=== PATIENT | female | born 1975 | race Caucasian/White ===

== ENCOUNTER → 2017-09-04 | Outpatient (CLI) | payer OTHER, BC ==
[2017-09-04 16:22] LABS: HEPATITIS B AB NEG
== END | disposition home or self-care (01) ==
LOC: C.LAB1850 14:09
PROVIDERS: ATTEND Nurse Practitioner Adult Health
DX: T14.8XXA Other injury of unspecified body region, initial encounter (principal); W46.1XXA Contact with contaminated hypodermic needle, initial encounter

== ENCOUNTER → 2017-10-12 | Outpatient (CLI) | payer OTHER | END | disposition home or self-care (01) | LOC: C.LAB1850 10:38 → EDSTATUS 10-14 10:31 | PROVIDERS: ATTEND Nurse Practitioner Adult Health | DX: Z77.21 Contact with and (suspected) exposure to potentially hazardous body fluids (principal) ==

== ENCOUNTER → 2017-12-01 | Outpatient (CLI) | payer OTHER | END | disposition home or self-care (01) | LOC: C.LAB1850 08:48 → EDSTATUS 12-10 12:57 | PROVIDERS: ATTEND Nurse Practitioner Adult Health | DX: Z77.21 Contact with and (suspected) exposure to potentially hazardous body fluids (principal); W46.1XXA Contact with contaminated hypodermic needle, initial encounter ==

== ENCOUNTER → 2018-03-09 | Outpatient (CLI) | payer OTHER | END | disposition home or self-care (01) | LOC: C.LAB1850 10:58 | PROVIDERS: ATTEND Nurse Practitioner Adult Health | DX: Z13.0 Encounter for screening for diseases of the blood and blood-forming organs and certain disorders involving the immune mechanism (principal) ==

== ENCOUNTER 2024-06-07 05:57 | Observation (INO) ==
--- NOTE | 2024-05-23 11:13 | PAT Medication Instructions ---
Medication Instructions Date of Service May 23, 2024 Home Medications atorvastatin 20 mg tablet 20 mg PO QAM cholecalciferol (vitamin D3) 25 mcg (1,000 unit) capsule (Vitamin D3) 25 mcg PO QAM DO NOT take the morning of surgery cholecalciferol (vitamin D3) 25 mcg (1,000 unit) capsule (Vitamin D3) 25 mcg PO QAM Take morning of surgery With a small sip of water, OTHERWISE NOTHING TO EAT OR DRINK AFTER MIDNIGHT: atorvastatin 20 mg tablet 20 mg PO QAM Other Notes If you have any questions please call us at [phone] or [phone] or [phone] or [phone]
--- NOTE | 2024-05-26 12:48 | Anesthesiology Consultation ---
Date of Service May 26, 2024 Assessment & Plan (1) Encounter for pre-operative examination: - Infectious disease screening: Per assessment on 05/26/24: No known recent infectious disease contacts or current infectious disease symptoms. - Patient acceptable risk for surgery pending surgeon-ordered PCP preop evaluation (MESHA Calzada, appt 05/30). Chart Review Chart Review: Patient seen in Pre Admission Testing Teaching & Discussion Pre-Anesthesia Teaching/Discussion Notes: Instructed NPO after midnight before surgery,except medications with 15 cc of water. Medication instructions provided according to the PAT guidelines. History Surgery Operation Date: 06/07/24 11:05 Proposed Procedures p C5-C7 Anterior Cervical Discectomy and Fusion - Adam Hobson, Height/Weight Height: 5 ft Weight: 69.9 kg Allergies Allergy/AdvReac Type Severity Reaction Status Date / Time No Known Allergies Allergy Verified 05/20/24 12:43 Medications Home Medications Medication Instructions Recorded Confirmed Last Taken atorvastatin 20 mg tablet 20 mg PO QAM 05/20/24 05/20/24 Unknown cholecalciferol (vitamin D3) 25 25 mcg PO QAM 05/20/24 05/20/24 Unknown mcg (1,000 unit) capsule (Vitamin D3) Past Medical History Medical History Hyperlipidemia Exercise / Class Metabolic Activity II 4-5 Yardwork/Stairs/Walk up hill (one FS: No CP, no SOB) Past Surgical History Surgical History Hx of tubal ligation S/P endometrial ablation [place] teeth extracted Past Anesthesia History No Hx of Anesthesia Complications Son: Slow to wake, no similar issues for patient personally History of PONV No Hx of PONV and No Hx of Motion Sickness Social History Smoking Status: Current every day smoker Smoking cigarettes per day: 5 cigs/day Do You Dip or Chew Tobacco: No Hx Alcohol Use: Yes alcohol intake frequency: holidays/special occasions only Hx Substance Use: Yes substance use type: marijuana (occasional (drops)) Review of Systems Patient denies chest pain, shortness of breath, dyspnea on exertion, fever, chills, cough, wheezing, palpitations. Physical Exam Vital Signs BP 118/73 P 67 TEMP 98.2 SP02 98%RA RESP 16 Physical Decreased cervical extension range of motion. Full TMJ range of motion. TMD 3 finger breaths Mallampati Score 3 Dentition: missing sides/molars, upper/lower right side implants Lungs: clear throughout to auscultation Cardiac: regular rate and rhythm, no murmurs noted Spine: normal Carotid arteries: negative bruit Extremities: no LE edema Lab Results Anesthesia Preop Results Results Anesthesia Widget: WBC 8.07 K/ul (4.8-10.8) 05/26/24 Hgb 13.3 g/dl (12.0-16.0) 05/26/24 Hct 40.5 % (37.0-47.0) 05/26/24 Plt 277 K/uL (130-400) 05/26/24 Na 138 mmol/L (136-145) 05/26/24 K 4.5 mmol/L (3.5-5.1) 05/26/24 Cl 105 mmol/L (98-107) 05/26/24 CO2 28 mmol/L (21-32) 05/26/24 BUN 16 mg/dl (6-23) 05/26/24 Creat 0.66 mg/dl (0.6-1.2) 05/26/24 Glucose Level 79 mg/dl (70-99(Fasting)) 05/26/24 PT 10.1 Seconds (9.0-12.0) 05/26/24 PTT 28 Seconds (21-31) 05/26/24 INR 0.9 (0.9-1.1) 05/26/24 Urine Color Yellow 05/26/24 Urine Appearance Clear (Clear) 05/26/24 Urine pH 7.5 (4.5-7.5) 05/26/24 Urine Specific [place] 1.005 (1.000-1.030) 05/26/24 Urine Protein Negative (Negative) 05/26/24 Urine Glucose (UA) Negative (Negative) 05/26/24 Urine Ketones Negative (Negative) 05/26/24 Urine Blood Negative (Negative) 05/26/24 Urine Nitrite Negative (Negative) 05/26/24 Urine Bilirubin Negative (Negative) 05/26/24 Urine Urobilinogen Negative (Negative) 05/26/24 Urine Leukocyte Esterase Negative (Negative) 05/26/24 Blood Type A Positive 05/26/24 Antibody Screen NEGATIVE 05/26/24 Testing Electrocardiogram Date: 05/26/24 Findings: + NSR @ (65) Chest X-Ray Date: 05/26/24 FINDINGS: Cardiomediastinal and hilar silhouettes are within normal limits. No pneumothorax, pleural effusion, airspace consolidation or pulmonary edema. Spondylotic spurring of the spine. IMPRESSION: No acute process.
--- OUTSIDE RECORDS SUMMARY | 2024-06-07 06:02 | External Medical Summary | Summary of Care ---
Author Name Unknown Organization [facility] Address [address] [place] [address] Phone [phone] Care Team Providers Care Garage Mechanic Name Role Phone Vivian Orocso PA-C Primary Care Provider [phone] Reason for Visit * Reason Comments pre-op exam Pt here for pre op e xam Encounter Details Date Type Department Care Team (Late st Contact Info) Description 05/30/2024 3:00 PM EDT Office Visit [facility] [address] [place] [address] Brigido Lopze MD [address] [place] [address] Preoperative general physical examination*; Cervical spinal stenosis; DDD (degenerative disc disease), cervical Allergies No known active allergiesdocumented as of this encounter (statuses as of 05/30/2024) Medications Medication Sig Dispensed Refills Start Date End Date Status Topiramate 25 MG Oral Tablet (topAMAX)Indications :Appetite increase TAKE 1 TABLET BY MOUTH TWICE DAILY every morning and before bedtime 60 Tablet 12/15/2023 Active Cyclobenzaprine HCl 5 MG Oral Tablet (Flexeril) Take 1 Tablet by mouth 2 times a day as needed for Muscle spasms. 45 Tablet 04/08/2024 Active Atorvastatin Calcium 20 MG Oral Tablet (Lipitor)Indications :Hyperlipidemia, unspecified hyperlipidemia type Take 1 Tablet by mouth in the morning. 90 Tablet 1 04/08/2024 Active Gabapentin 300 MG Oral Capsule (Neurontin) Take 1 Capsule by mouth at bedtime. 30 Capsule 3 05/30/2024 Active Gabapentin 300 MG Oral Capsule (Neurontin) Take 1 Capsule by mouth in the morning and 1 Capsule at noon and 1 Capsule before bedtime. 04/08/2024 4 Discontinue d(Refill) documented as of this encounter (statuses as of 05/30/2024) Active Problems Problem Noted Date Diagnosed Date Cervical spinal stenosis 12/22/2023 DDD (degenerative disc disease), cervical 2023 Cervical high risk human pap illomavirus (HPV) DNA test positive 11/28/2021 S/P hemorrhoidectomy 01/10/2015 OBESITY, UNSPECIFIED 11/21/2004 documented as of this encounter (statuses as of 05/30/2024) Immunizations Name Administration Dates Next Due Covid-19 Ad26, Single Dose (Page Mage/J&J) 021 Hepatitis B, 20+ yrs 03/09/2018,10/12/2017 documented as of this encounter Social History Tobacco Use Types Packs/Day Years Used Date Smoking Tobacco: Every Day Cigarettes Last attempted to quit: 09/16/1998 Passive Smoke Exposure: Past Smokeless Tobacco: Never Alcohol Use Standard Drinks/Week Comments Yes 0 (1 standard drink = 0.6 oz pur e alcohol) Rare-- every 3-4 months PHQ-2 Answer Date Recorded PHQ Adult Total Score 0 04/08/2024 Hunger Vital Sign Answer Date Recorded Within the past 12 months, y ou worried that your food would run out before you got the money to buy more. Never true 12/17/19 24 Within the past 12 months, t he food you bought just didn't last and you didn't have money to get more. Never true 12/17/2023 Childcare Answer Date Recorded Do you feel overwhelmed with taking care of a child, family member or friend? No 12/17/2023 Does your family need help f inding childcare? (Household - for ages 0-17 years) Not on file 12/17/2023 Clothing Answer Date Recorded Have you been unable to get clothing when it was really needed? No 12/17/2023 Is your family able to get c lothes or diapers when needed? (Household - for ages 0-17 years) Not on file 12/17/2023 Personal Safety Answer Date Recorded Do you feel unsafe or have concerns for your saf ety? No 12/17/2023 Do you have concerns for you r family's safety? (Household - for ages 0-17 years) Not on file 12/17/2023 Utilities Answer Date Recorded Do you have trouble paying y our heating, water, or electric bill? No 12/17/2023 Is your family able to pay t he heat, water, or electric bill? (Household - for ages 0-17 years) Not on file 12/17/2023 Does your family have access to good internet? (Household - for ages 0-17 years) Not on file 12/17/2023 Employment Status Answer Date Recorded Are you unemployed or without regular income? No 12/17/2023 Does the household have a re gular source of income? (Household - for ages 0-17 years) Not on file 12/17/2023 Social Connections Answer Date Recorded How often do you feel lonely or isolated from th ose around you? Never 12/17/2023 Financial Resource Strain Answer Date R ecorded Do you have any trouble payi ng for your medications, or do you think you might in the future? No 12/17/2023 Does your family have troubl e paying for medicine? (Household - for ages 0-17 years) Not on file 12/17/2023 Transportation Needs Answer Date Record ed READ ONLY Do you have troubl e getting a ride to medical visits or work? Never True 12/17/2023 Does your family have a hard time getting a ride to doctors visits? (Household - for ages 0-17 years) Not on file 12/17/2023 Has lack of transportation k ept you from medical appointments, meetings, work, or from getting things needed for daily living? Check all that apply. (Adult - for ages 18 years and over) Not on file 12/17/2023 Do you (or your family) have trouble finding or paying for a ride (transportation)? (Household - for ages 0-17 years) Not on file 12/17/2023 Housing Stability Answer Date Recorded Do you currently live in a s helter or have no steady place to sleep at night? No 12/17/2023 READ ONLY Do you think you a re at risk of becoming homeless? No 12/17/2023 Does your family worry about paying for your home or becoming homeless? (Household - for ages 0-17 years) Not on file 0 12/17/2023 Are you homeless or worried that you might be in the future? (Adult - for ages 18 years and over) Not on file Are you (or your family) sheri eless or worried that you might be in the future? (Household - for ages 0-17 years) Not on file Food Insecurity Answer Date Recorded Do you need food for this week? No 12/17/2023 Are you able to get enough f ood for your family? (Household - for ages 0-17 years) Not on file 12/17/2023 Does your family need food t his week? (Household - for ages 0-17 years) Not on file 12/17/2023 Do you always have enough fo od for your family? (Household - for ages 0-17 years) Not on file 12/17/2023 Sex and Gender Information Value Date Recorded Sex Assigned at Female 12/17/2023 2:41 PM EST Gender Identity Female 12/17/2023 2:41 PM EST Sexual Orientation Not on file Job Start Date Occupation Industry Not on file Not on file Not on file documented as of this encounter Last Filed Vital Signs Vital Sign Reading Time Taken Comments Blood Pressure 118/72 05/30/2024 2:58 PM EDT Pulse 75 05/30/2024 2:58 PM EDT Temperature 37 C (98.6 F) 05/30/2024 2:58 PM EDT Respiratory Rate 18 05/30/2024 2:58 PM EDT Oxygen Saturation 98% 05/30/2024 2:58 PM EDT Inhaled Oxygen Concentration - - Weight 69.9 kg (154 lb 1.6 oz) 05/30/2024 2:58 P M EDT Height - - Body Mass Index 29.12 04/13/2024 1:15 PM EDT documented in this encounter Patient Instructions * Patient Instructions* Tracy Salazar LPN - 05/30/2024 3:01 PM EDT ~~PATIENT INSTRUCTIONS FOR PNEUMOCOCCAL VACCINE~~ Possible side effects of pneumococcal vaccine, (pneumonia shot), are usually mild and can include: 1. Soreness or redness at injection site 2. Low grade fever 3. Body aches You may use Tylenol/Acetaminophen as needed for these symptoms. LET YOUR DOCTOR KNOW IMMEDIATELY IF YOU HAVE DIFFICULTY BREATHING OR SWALLOWING, EXPERIENCE ITCHINGOF FEET OR HANDS, HAVE SWELLING OF EYES, FACE OR INSIDE OF NOSE. Vaccination is the best way to protect against hepatitis B. Most people should get 3 doses of hepatitis B vaccine. If you miss a dose or get behind schedule, get the next dose as soon as you can. There is no need to start over. Age for Hepatitis B Vaccine: INFANTS: *Infants whose mother HAS hepatitis B virus: #1 dose- at 2 month visit #2 dose- 1 month after dose #1 #3 dose- 7 months of age (at least 5 months after dose #1) *Infants whose mother does NOT have hepatitis B virus: #1 dose- - 2 months of age #2 dose- 1-4 months of age (at least 1 month after dose #1) #3 dose- 6-18 months of age ( at least 2 months after dose #2) *Other recommended age groups #1 dose- Now #2 dose- 1-2 months after dose #1 #3 dose- 4-6 months after dose #1 WHAT ARE THE RISKS FROM HEPATITIS B VACCINE? Hepatitis B vaccine is one of the safest vaccines. Getting the disease is much more likely to causeserious illness than getting the vaccine. MILD PROBLEMS: - soreness where the shot was given. - mild to moderate fever Acetaminophen or Ibuprofen (not aspirin) may be used to reduce fever and pain. SEVERE PROBLEMS: - serious allergic reaction is very rare. WHAT TO DO IF THERE IS A SERIOUS REACTION: - Call a doctor or get the person to a doctor right away. - Ask your doctor, nurse, or health department to file a Vaccine Adverse Event Report form. To filea report yourself you can call: (toll-free) LET YOUR DOCTOR KNOW IMMEDIATELY IF YOU HAVE DIFFICULTY BREATHING OR SWALLOWING, EXPERIENCE ITCHING OF FEET OR HANDS, HAVE SWELLING OF EYES, FACE OR INSIDE OF NOSE. documented in this encounter Progress Notes * Brigido Lopez MD - 05/30/2024 3:27 PM EDT Subjective: Daphney Barajas is a 49 year old female. Presents at the request of Dr Hobson for medical clearance for cervical spine fusion at C5/6, 6/7 for severe spinal stenosis . Scheduled on Jun 07 Neck pain spasm, arm numbness, weakness, Lt occ Occ smoking, advised to stop completely Reviewed tests , clear, normal PHM: Patient Active Problem List Diagnosis OBESITY, UNSPECIFIED S/P hemorrhoidectomy Cervical high risk human papillomavirus (HPV) DNA test positive Cervical spinal stenosis DDD (degenerative disc disease), cervical Current Outpatient Medications Medication Sig Dispense Refill Topiramate 25 MG Oral Tablet (topAMAX) TAKE 1 TABLET BY MOUTH TWICE DAILY every morning and before bedtime 60 Tablet 0 Cyclobenzaprine HCl 5 MG Oral Tablet (Flexeril) Take 1 Tablet by mouth 2 times a day as needed for Muscle spasms. 45 Tablet 0 Atorvastatin Calcium 20 MG Oral Tablet (Lipitor) Take 1 Tablet by mouth in the morning. 90 Tablet 1 Gabapentin 300 MG Oral Capsule (Neurontin) Take 1 Capsule by mouth at bedtime. 30 Capsule 3 No current facility-administered medications for this visit. Past Medical History: Diagnosis Date Hemorrhoids Past Surgical History: Procedure Laterality Date ANAL TAG REMOVAL, EXTERNAL, MULTIPLE 11/01/2015 11/01/2015 EXCISION EXTERNAL HEMORRHOID TAGS performed by Yovany Garcia MD at OR [facility] HEMORRHOIDECTOMY, INTERNAL, 2 + COLUMNS N/A 12/04/2014 12/04/2014 HEMORRHOIDECTOMY EXTERNAL AND INTERNAL COMPLEX performed by Yovany Garcia MD at OR [facility] HYSTEROSCOPY W/FALLOPIAN IMPLANTS 11/01/2015 HYSTEROSCOPY SURGICAL BILATERAL FALLOPIAN TUBE performed by Toby Cherry DO at OR [facility] HYSTEROSCOPY;ENDOMETRIAL ABLAT 11/01/2015 HYSTEROSCOPY ENDOMETRIAL ABLATION performed by Toby Cherry DO at OR [facility] INJECT DX/THER SUBSTANCE INTERLAMINAR CERVICAL/THORACIC W IMAGE GUIDE 12/14/2023 INJECTION SPINE LUMBAR CERVICAL OR THORACIC performed by Nickolas Canela DO at OR [facility] INJECT DX/THER SUBSTANCE INTERLAMINAR CERVICAL/THORACIC W IMAGE GUIDE 04/13/2024 INJECTION SPINE LUMBAR CERVICAL OR THORACIC performed by Nickolas Canela DO at OR [facility] Review of patient's allergies indicates: No Known Allergies Family History Problem Relation Name Age of Onset Diabetes Grandmother (Maternal) Hypertension Grandmother (Maternal) Heart Disorder Grandfather (Maternal) [place] Heart Disorder Uncle (Unspecified) [place] Breast Cancer No significant family history Family Status Relation Status Mo Other Fa Alive MGMA (Not Specified) MGFA (Not Specified) UNCLE (Not Specified) No history (Not Specified) Social History Tobacco Use Smoking status: Every Day Current packs/day: 0.00 Types: Cigarettes Last attempt to quit: 09/16/1998 Years since quittin.7 Passive exposure: Past Smokeless tobacco: Never Substance Use Topics Alcohol use: Yes Comment: Rare-- every 3-4 months Vaping/E-Cigarette Use Vaping/E-Cigarette Use Never User Vaping/E-Cigarette Substances Vaping/E-Cigarette Devices Review of Systems Constitutional: Positive for activity change (chronic neck and lt arm pain) and fatigue. Negative for appetite change, chills, diaphoresis, fever and unexpected weight change. Respiratory: Negative for cough, chest tightness, shortness of breath and wheezing. Cardiovascular: Negative for chest pain, palpitations and leg swelling. Gastrointestinal: Negative for abdominal distention and abdominal pain. Endocrine: Negative. Musculoskeletal: Positive for myalgias (lt arm), neck pain and neck stiffness. Neurological: Positive for weakness (lt arm), numbness and headaches. Negative for dizziness and light-headedness. Psychiatric/Behavioral: Positive for sleep disturbance. Negative for agitation and behavioral problems. Objective: BP 118/72 | Pulse 75 | Temp 37 C (98.6 F) (Tympanic) | Resp 18 | Wt 69.9 kg (154 lb 1.6 oz) | SpO2 98% | BMI 29.12 kg/m | BSA 1.73 m Physical Exam Constitutional: General: She is not in acute distress. Appearance: Normal appearance. She is not ill-appearing, toxic-appearing or diaphoretic. HENT: Head: Normocephalic and atraumatic. Nose: Nose normal. Eyes: Extraocular Movements: Extraocular movements intact. Cardiovascular: Rate and Rhythm: Normal rate and regular rhythm. Pulses: Normal pulses. Heart sounds: Normal heart sounds. No murmur heard. Pulmonary: Effort: Pulmonary effort is normal. No respiratory distress. Breath sounds: Normal breath sounds. No stridor. No wheezing, rhonchi or rales. Chest: Chest wall: No tenderness. Musculoskeletal: Cervical back: Tenderness present. Right lower leg: No edema. Left lower leg: No edema. Neurological: General: No focal deficit present. Mental Status: She is alert and oriented to person, place, and time. Psychiatric: Mood and Affect: Mood normal. Behavior: Behavior normal. ASSESSMENT: Diagnosis for procedure: cervical spinal stenosis Preoperative Examination - reviewed PLAN: Patient is medically cleared. (Z01.818) Preoperative general physical examination (primary encounter diagnosis) Plan: op (M48.02) Cervical spinal stenosis Plan: op (M50.30) DDD (degenerative disc disease), cervical Plan: op Med prn Brigido Lopez MD documented in this encounter Nursing Notes * Tracy Salazar LPN - 05/30/2024 2:57 PM EDT Chief Complaint Patient presents with pre-op exam Pt here for pre op exam documented in this encounter Plan of Treatment Upcoming Encounters Date Type Department Care Team (Latest Contact Info) Description 09/19/2024 9:30 AM [facility] Hospital Encounter ENDO [facility], Endoscopy Room [facility] [address] [place] [phone] Margarita Christian MD [address] [id number] 09/19/2024 9:30 AM EST - 09/19/2024 10:00 AM EST Surgery ENDO [facility], Endoscopy Room [facility] [address] [place] [phone] Margarita Christian MD [address] [id number] ESOPHAGOGASTRODUODENOSCOPY (EGD), FLEXIBLE, TRANSORAL, DIAGNOSTIC Scheduled Procedures Name Priority Associated Diagnoses Date/Ti nj ESOPHAGOGASTRODUODENOSCOPY ( EGD), FLEXIBLE, TRANSORAL, DIAGNOSTIC Screen for colon cancer 09/19/2024 9:30 AM EST Health Maintenance Due Date Last Done Comments Pneumococcal Vaccine: Pediatrics (0 to 5 Years) and At-Risk Patients (6 to 64 Years) (1 of 2 - PCV) 1982 DTaP,Tdap,and Td Vaccines (2 - Tdap) 11/22/2004 11/21/2004, 02/25/1994 Hepatitis B Vaccine (3 of 3 - 19+ 3-dose series) 05/04/2018 03/09/2018, 10/12/2017 Cologuard 2021 Colonoscopy 2021 Colorectal Cancer Screening 2021 Fecal Occult Blood Test 2021 Sigmoidoscopy 2021 COVID-19 Vaccine (2 - season) 2023 10/18/2021 Influenza Vaccine (FLU shot) (#1) 2024 Mammogram 11/13/2024 11/13/2023, 10/17, 11/06/2022, Additional history exists Depression Screening 04/08/2025 04/08/2024 Lipid Panel 11/22/2026 11/22/2021, 10/17/1998 Pap Smear 04/08/2027 04/08/2024, 10/16, 07/06/2015, Additional history exists Diabetes Screening 05/26/2027 05/26/2024, 0 11/22/2021, 04/02/2000, Additional history exists Cervical Cancer Screening 04/08/2029 HPV/Co-Test 04/08/2029 04/08/2024 HPV (Gardasil) Vaccine Aged Out No lo nger eligible based on patient's age to complete this topic MENINGOCOCCAL (MENACTRA/MENVEO) Aged Out No longer eligible based on patient's age to complete this topic documented as of this encounter Medical Devices Implanted Type Area Coach Cleaner Device Identifier Shelf Expiration Date Model / Serial / Lot Device Perm Cntrl [id number] - [id number] Implanted:Qty: 1 on 11/01/2015 by Toby Cherry DO at OR [facility] Right: Fallopian Tube [employer] 12/15/2016 [id number] / / [id number] Device Perm Cntrl [id number] - [id number] Implanted:Qty: 1 on 11/01/2015 by Toby Cherry DO at OR [facility] Left: Fallopian Tube [employer] 12/15/2016 [id number] / / [id number] documented as of this encounter Visit Diagnoses Diagnosis Preoperative general physical examination- Primary Other specified pre-operative examination Cervical spinal stenosis Spinal stenosis in cervical region DDD (degenerative disc disease), cervical Degeneration of cervical intervertebral disc Screen for colon cancer Special screening for malignant neoplasms, colon documented in this encounter Advance Directives * Full Code (Latest Code Status on File) Date Activated Date Inactivated Comments 11/01/2015 10:13 AM 11/01/2015 4:38 PM This orde r reflects the patients wishes and were consensually agreed upon. Care Teams Garage Mechanic Relationship Specialty Start Date End Date Vivian Orosco PA-C [address] [facility] [place] [address] PCP - General Physician [employer] 10/28/22 documented as of this encounter"
--- OUTSIDE RECORDS SUMMARY | 2024-06-07 06:02 | External Medical Summary | Summary of Care ---
Author Name Unknown Organization [facility] Address [address] [place] [address] Phone [phone] Care Team Providers Care Memorial Designer Name Role Phone Vivian Orosco PA-C Primary Care Provider [phone] Encounter Details Date Type Department Care Team (Late st Contact Info) Description 05/27/2024 Orders Only [facility] [address] [place] [address] Vivian Orosco PA-C [address] [place] [address] Allergies No known active allergiesdocumented as of this encounter (statuses as of 05/27/2024) Medications Medication Sig Dispensed Refills Start Date End Date Status Topiramate 25 MG Oral Tablet (topAMAX)Indications:Ap petite increase TAKE 1 TABLET BY MOUTH TWICE DAILY every morning and before bedtime 60 Tablet 12/15/2023 Active Cyclobenzaprine HCl 5 MG Oral Tablet (Flexeril) Take 1 Tablet by mouth 2 times a day as needed for Muscle spasms. 45 Tablet 04/08/2024 Active Gabapentin 300 MG Oral Capsule (Neurontin) Take 1 Capsule by mouth in the morning and 1 Capsule at noon and 1 Capsule before bedtime. 04/08/2024 Active Atorvastatin Calcium 20 MG Oral Tablet (Lipitor)Indications:Hy perlipidemia, unspecified hyperlipidemia type Take 1 Tablet by mouth in the morning. 90 Tablet 1 04/08/2024 Active documented as of this encounter (statuses as of 05/27/2024) Active Problems Problem Noted Date Diagnosed Date Cervical spinal stenosis 12/22/2023 DDD (degenerative disc disease), cervical 2023 Cervical high risk human pap illomavirus (HPV) DNA test positive 11/28/2021 S/P hemorrhoidectomy 01/10/2015 OBESITY, UNSPECIFIED 11/21/2004 documented as of this encounter (statuses as of 05/27/2024) Immunizations Name Administration Dates Next Due Covid-19 Ad26, Single Dose (Izabella/J&J) 021 Hepatitis B, 20+ yrs 03/09/2018,10/12/2017 documented [...] money to buy more. Never true 12/17/19 Within the past 12 months, t he [...] 18 years and over) Not on file 02/01/202 4 Are you (or your family) sheri eless [...] on file documented as of this encounter Plan of Treatment Upcoming Encounters Date Type Department Care Team (Latest Contact Info) Description 05/30/2024 3:00 PM EDT Office Visit [facility] [id number] [place] [address] Brigido Lopez MD [address] [place] [address] 09/19/2024 9:30 AM EST Hospital Encounter ENDO OSS, Endoscopy Room [facility] [address] [facility] [place] [phone] Margarita Christian MD [address] [place] [address] 09/19/2024 9:30 AM EST - 09/19/2024 10:00 AM EST Surgery ENDO OSS, Endoscopy Room [facility] [place] [phone] Margarita Christian MD [address] [place] [id number] ESOPHAGOGASTRODUODENOSCOPY (EGD), FLEXIBLE, TRANSORAL, DIAGNOSTIC Scheduled Procedures Name Priority Associated Diagnoses Date/Ti me ESOPHAGOGASTRODUODENOSCOPY ( EGD), FLEXIBLE, TRANSORAL, DIAGNOSTIC Screen [...] this encounter Medical Devices Implanted Type Area Pacu Rn Device Identifier Shelf Expiration Date Model / Serial / Lot Device Perm Cntrl [id number] - [id number] Implanted:Qty: 1 on 11/01/2015 by Toby Cherry DO at OR [facility] Right: Fallopian Tube [employer] 12/15/2016 [id number] / / [id number] Device Perm Cntrl [id number] - [id number] Implanted:Qty: 1 on 11/01/2015 by Toby Cherry DO at OR [facility] Left: Fallopian Tube [employer] 12/15/2016 [id number] / / [id number] documented as of this encounter Procedures Procedure Name Priority Date/Time Associated Diagnosis Comments CHEMISTRY-OUTSIDE Routine 05/26/2024 documented in this encounter Results * CHEMISTRY-OUTSIDE (05/26/2024) Not all results display below - see scan for full detail OUTSIDE LAB (SEE SCANNED REPORT) Comment:SCAN INCLUDES: CBCD, COAG, BMP, UA CREATININE-OUTSID E LAB 0.66 0.6 - 1.2 MG/DL OUTSIDE LAB (SEE SCANNED REPORT) EGFR-OUTSIDE LAB 104.5 ML/MIN/1. 73M2 OUTSIDE LAB (SEE SCANNED REPORT) POTASSIUM-OUTSIDE LAB 4.5 3.5 - 5.1 MMOL/L OUTSIDE LAB (SEE SCANNED REPORT) GLUCOSE-OUTSIDE LAB 79 70 - 99 MG/DL OUTSIDE LAB (SEE SCANNED REPORT) HOURS FASTING OUTSID E LAB (SEE SCANNED REPORT) TRIGLYCERIDES-OUT SIDE LAB OUTSIDE LAB (SEE SCANNED REPORT) CHOLESTEROL-OUTSI DE LAB OUTSIDE LAB (SEE SCANNED REPORT) HDL-OUTSIDE LAB OUTS [facility] LAB (SEE SCANNED REPORT) CHOL/HDL RATIO-OUTSIDE LAB OUTSIDE LA B (SEE SCANNED REPORT) LDL (CALCULATED)-OUTS MIRTA LAB OUTSIDE LAB (SEE SCANNED REPORT) LDL (DIRECT MEASURE)-OUTSIDE LAB OUTSIDE LAB (SEE SCANNED REPORT) HEMOGLOBIN, Z8L-SKHNURW LAB OUTSIDE LAB (SEE SCANNED REPORT) PHOSPHORUS-OUTSID E LAB OUTSIDE LAB (SEE SCANNED REPORT) PTH-OUTSIDE LAB OUTS MIRTA LAB (SEE SCANNED REPORT) MICROALBUMIN RATIO-OUTSIDE LAB OUTSIDE LA B (SEE SCANNED REPORT) PROTEIN, UA-OUTSIDE LAB NEGATIVE OUTSIDE LAB (SEE SCANNED REPORT) HGB 13.3 12 - 16 G/DL OUTSIDE LAB (SEE SCANNED REPORT) 05/26/2024 Adam Hobson DO LABORATORY OUTSIDE LAB (SEE SCANNED REPORT) documented in this encounter Advance Directives * Full Code (Latest Code Status on File) Date Activated Date Inactivated Comments 11/01/2015 10:13 AM 11/01/2015 4:38 PM This orde r reflects the patients wishes and were consensually agreed upon. Care Teams Memorial Designer Relationship Specialty Start Date End Date Vivian Orosco PA-C [address] [facility] [place] [address] PCP - General Physician Marine Geologist 10/28/22 documented as of this encounter
--- OUTSIDE RECORDS SUMMARY | 2024-06-07 06:02 | External Medical Summary | Summary of Care ---
Author Name Unknown Organization [facility] Address [address] [place] [address] Phone [phone] Care Team Providers Care Talent Management Manager Name Role Phone Vivian Orosco PA-C Primary Care Provider [phone] Encounter Details Date Type Department Care Team (Late st Contact Info) Description 05/26/2024 Result Scan Unspecified Department <No scans attached> Allergies No known active allergiesdocumented as of [...] Description 05/30/2024 3:00 PM EDT Office Visit [facility] [address] [place] [address] Brigido Lopez MD [address] [place] [address] 09/19/2024 9:30 AM EST Hospital Encounter ENDO [facility]SSC, Endoscopy Room [facility] [address] [facility] [place] [phone] Margarita Christian MD [address] [place] [address] 09/19/2024 9:30 AM EST - 09/19/2024 10:00 AM EST Surgery ENDO OSSC, Endoscopy Room [facility] [address] [facility] [place] [phone] Margarita Christian MD [address] [place] [address] ESOPHAGOGASTRODUODENOSCOPY (EGD), FLEXIBLE, TRANSORAL, DIAGNOSTIC Scheduled Procedures [...] this encounter Medical Devices Implanted Type Area Development Technician Device Identifier Shelf Expiration Date Model / Serial / Lot Device Perm Cntr [id number] - [id number] Implanted:Qty: 1 on 11/01/2015 by Toby Cherry DO at OR [facility] Right: Fallopian Tube [employer] 12/15/2016 [id number] / / [id number] Device Perm Cntrl [id number] - [id number] Implanted:Qty: 1 on 11/01/2015 by Toby Cherry DO at OR [facility] Left: Fallopian Tube [employer] 12/15/2016 [id number] / / [id number] documented as of this encounter Procedures Procedure Name Priority Date/Time Associated Diagnosis Comments EKG SCANNED RESULT 05/26/2024 documented in this encounter Results * EKG SCANNED RESULT (05/26/2024) 05/26/2024 No Physician Data Unknown EKG documented in this encounter Advance Directives * Full Code (Latest Code Status on File) Date Activated Date Inactivated Comments 11/01/2015 10:13 AM 11/01/2015 4:38 PM This orde r reflects the patients wishes and were consensually agreed upon. Care Teams Talent Management Manager Relationship Specialty Start Date End Date Vivian Orosco PA-C [address] [place] [address] PCP - General Physician Commercial Journeyman Electrician 10/28/22 documented as of this encounter
--- OUTSIDE RECORDS SUMMARY | 2024-06-07 06:02 | External Medical Summary | Summary of Care ---
Author Name Unknown Organization [facility] Address [address] [place] [address] Phone [phone] Care Team Providers Care Field Seismologist Name Role Phone Vivian Orosco PA-C Primary Care Provider [phone] Encounter Details Date Type Department Care Team (Late st Contact Info) Description 05/27/2024 Orders Only [facility] [address] [place] [address] Vivian Orosco PA-C [address] [place] [address] Allergies No known active allergiesdocumented [...] Description 05/30/2024 3:00 PM EDT Office Visit [facility] [address] [place] [address] Brigido Lopez MD [address] [place] [address] 09/19/2024 9:30 AM EST Hospital Encounter ENDO OSS, Endoscopy Room [facility] [address] [facility] [place] [phone] Margarita Christian MD [address] [place] [address] 09/19/2024 9:30 AM EST - 09/19/2024 10:00 AM EST Surgery ENDO OSS, Endoscopy Room [facility] [address] [facility] [place] [phone] Margarita Christian MD [address] [place] [address] ESOPHAGOGASTRODUODENOSCOPY (EGD), FLEXIBLE, TRANSORAL, DIAGNOSTIC Scheduled Procedures [...] this encounter Medical Devices Implanted Type Area Milk Condenser Device Identifier Shelf Expiration Date Model / Serial / Lot Device Perm Cntrl [id number] - [id number] Implanted:Qty: 1 on 11/01/2015 by Toby Cherry DO at OR [facility] Right: Fallopian Tube [employer] 12/15/2016 [id number] / / [id number] Device Perm Cntrl [id number] - [id number] Implanted:Qty: 1 on 11/01/2015 by Toby Cherry DO at OR [facility] Left: Fallopian Tube [employer] 12/15/2016 [id number] / / [id number] documented as of this encounter Procedures Procedure Name Priority Date/Time Associated Diagnosis Comments XR CHEST 2 VIEWS Routine 05/26/2024 documented in this encounter Results * XR CHEST 2 VIEWS (05/26/2024) Anatomical Region Laterality Modality Chest Other 05/26/2024 Adam Hobson DO RADIOLOGY ( RAD GENERAL) documented in this encounter Advance Directives * Full Code (Latest Code Status on File) Date Activated Date Inactivated Comments 11/01/2015 10:13 AM 11/01/2015 4:38 PM This orde r reflects the patients wishes and were consensually agreed upon. Care Teams Field Seismologist Relationship Specialty Start Date End Date Vivian Orosco PA-C [address] [facility] [place] [id number] PCP - General Physician Journeyman Apprentice Electricians 10/28/22 documented as of this encounter
[2024-06-07] MEDS: LR 60ML/HR IV SCH (06:26)
[2024-06-07] MEDS: ACETAMINOPHEN 500 MG TAB PO SCH (06:27)
[2024-06-07] MEDS: GABAPENTIN 900 MG DOSE PO SCH (06:27)
[2024-06-07] MEDS: CeleBREX 200 MG CAP PO SCH (06:27)
[2024-06-07] MEDS: LR 15ML/HR IV SCH (06:49)
[2024-06-07] MEDS ORDERED: LIDOCAINE 2% 2 ML VIAL/AMP(20MG/ML) INFIL ONE (07:01)
[2024-06-07] MEDS ORDERED: ROCURONIUM BROMIDE 10 MG/ML 5 ML VIAL IV ONE (07:01)
[2024-06-07] MEDS ORDERED: ONDANSETRON INJ 2 MG/ML 2 ML VIAL ONE (07:01)
[2024-06-07] MEDS ORDERED: GLYCOPYRROLATE 0.2 MG/ML VIAL ONE (07:01)
[2024-06-07] MEDS ORDERED: PROPOFOL IV EMULSION 10 MG/ML 20 ML VIAL IV ONE (07:01)
[2024-06-07] MEDS ORDERED: DEXAMETHASONE SOD INJ 4 MG/ML VIAL ONE (07:01)
[2024-06-07] MEDS ORDERED: fentaNYL citrate PF 100 MCG/2 ML VIAL ONE ×2 (07:02→08:03)
[2024-06-07] MEDS ORDERED: MIDAZOLAM HCL 1 MG/ML 2ML VIAL ONE (07:02)
[2024-06-07] MEDS ORDERED: SUGAMMADEX SODIUM 200 MG/2 ML VIAL IV ONE (07:08)
[2024-06-07] MEDS ORDERED: ePHEDrine sulfate 50 MG/ML AMP IV PRN (07:18)
[2024-06-07] MEDS ORDERED: ONDANSETRON INJ 2 MG/ML 2 ML VIAL IV PRN ×2 (07:18→10:49)
[2024-06-07] MEDS ORDERED: fentaNYL citrate PF 100 MCG/2 ML VIAL IV PRN (07:18)
[2024-06-07] MEDS ORDERED: ATROPINE SULFATE 0.1 MG/ML 10ML SYR IV PRN (07:18)
--- NOTE | 2024-06-07 07:35 | History & Physical Bridge Note ---
Date of Service June 07, 2024 History & Physical Bridge Note I have examined the patient, reviewed the History & Physical and in the interval since the performance of the History & Physical I have noted the following changes of clinical significance: no changes noted
--- NOTE | 2024-06-07 07:36 | History & Physical Report ---
Date of Service June 07, 2024 Assessment & Plan (1) Herniation of cervical intervertebral disc with radiculopathy: Plan: C5-C7 anterior cervical discectomy and fusion History of Present Illness Chief Complaint: Neck and arm pain Primary Care Provider: Vivian Orosco PA-C This is a 41-year-old female that presents with chronic assisted neck and arm pain a failed course of nonoperative care she is here for surgical invention. Allergies Allergy/AdvReac Type Severity Reaction Status Date / Time No Known Allergies Allergy Verified 06/07/24 06:23 Home Medications Medication Instructions Recorded Confirmed Type atorvastatin 20 mg tablet 20 mg PO QAM 05/20/24 06/07/24 History cholecalciferol (vitamin D3) 25 25 mcg PO QAM 05/20/24 06/07/24 History mcg (1,000 unit) capsule (Vitamin D3) Past Med/Surg History Problem List (Updated 06/07/24 @ 07:36 by Adam Hobson DO) Herniation of cervical intervertebral disc with radiculopathy Encounter for pre-operative examination Medical History Hyperlipidemia Surgical History Hx of tubal ligation S/P endometrial ablation Riley teeth extracted Social History Smoking Status: Current every day smoker Tobacco Type: Cigarettes Cigarettes Per Day: 5 cigs/day; Second Hand Exposure: No; Do You Dip or Chew Tobacco: No; Tobacco Cessation Education Requested by Patient: No Hx Alcohol Use: Yes Hx Substance Use: Yes Preferred Language: Maldivian Communication Ability: Effective Carbider Required: No Beliefs That Will Affect Care: None Current Living Situation: Significant Other Other Information That Helps Us Care for You: No Feels Safe at Home: Yes Safety Concerns: Feels Safe At This Time Assistive Devices: Contacts Physical Exam Physical Exam: Patient is alert and oriented Heart regular in rhythm lungs clear Results & Data Results & Data Vital Signs (Past 12 Hours) Vital Signs Temp Pulse Resp BP Pulse Ox O2 Del Method 06/07/24 06:25 36.8 C 61 20 135/84 98 Room Air
[2024-06-07] MEDS: ceFAZolin 2000MG 2,000 MG/15 ML SYR IV SCH ×2 (07:43→15:47)
[2024-06-07] MEDS: FLOSEAL HEMOSTATIC MATRIX 10ML TOP ONE (08:12)
[2024-06-07] MEDS: ceFAZolin 330 MG/ML 1 GM VIAL ONE (08:12)
--- NOTE | 2024-06-07 09:11 | Operative Report ---
Post Operative Report Pre & Post Diagnosis Operation Date: 06/07/24 07:45 Pre-Op Diagnosis: Herniation Cervical Intervetebral Disc Radiculopathy Post-Op Diagnosis: Herniation Cervical Intervetebral Disc Radiculopathy I identified the patient and participated in the time-out.: Yes Procedure Operation Date: 06/07/24 07:45 Actual Procedures #1 anterior cervical discectomy with bilateral foraminotomies C5-C6 C6-C7. #2 anterior cervical arthrodesis C5-C6 C6-C7. #3 placement of Spira 6 mm cage filled with os design C5-C6 and 7 mm Spira at C6-C7. #4 placement of K2 M plate and screws from C5-C7. Surgeon Adam Hobson, Radio News Anchor Melody Velasquez Estimated Blood Loss 20 Findings Consistent with Post-Op Diagnosis Specimens None Indications This is a 49-year-old female presents manage diagnosis of failed course of nonoperative care is here for surgical invention. Description of Procedure Patient was met with identified informed consent obtained. Patient was then taken to the operative suite underwent ablation placed in supine position the [place] table to [place] head control clerk. All bony prominences well-padded eyes inspected to ensure no external pressure placed upon the. This point the anterior cervical spine was prepped and draped in the normal sterile fashion. Identified the C6 vertebral body and a transverse incision was placed along the right anterior aspect of the cervical spine overlying his region. Blunt dissection with the assistance of bipolar electrocautery performed down to and exposing the anterior cervical spine from C5-C 7. Self-retaining retractors placed. Then performed a complete discectomy of C5-C6 out to the uncovertebral joints bilaterally. [place] distracting pins utilized to assist in visualization. Removed all posterior annular fibers longitudinal ligament bilateral foraminotomies performed. Endplates burred to subcortical bleeding bone and a 6 mm spiral cage filled with os design tapped into position. Distracting and pressors removed and I proceeded to C6-C7. Again complete discectomy performed out to the uncovertebral was bilaterally. [place] distraction pins again utilized. Removed all posterior annular fibers longitudinal ligament bilateral foraminotomies performed. Endplates burred to subcortical and bone and a 7 mm spiral cage filled with os design bone graft tapped in position. Distracting apparatus was removed all anterior osteophytes burred to a smooth cortical surface and a K2 M plate and screws applied with the assistance of fluoroscopy. The incision was then copiously irrigated explored to ensure no damage to surrounding structures remaining bleeding. 10 round RENETTA drain inserted. The incision was then closed with 2 Vicryl in the fascia and 4 Monocryl for final skin closure. Steri-Strips sterile dressing placed. Patient awakened taken to PACU stable condition. Please note spinal cord monitoring was utilized at the procedure no changes noted. Melody Velasquez was present throughout the entire surgery involved in patient positioning complex course of the surgery and final skin closure. Im ordering 10 grams of Triple Washburn Collagen Powder (Petsy [id number]) to treat an incision wound that was caused by a spine procedure. The incision is approximately 2 cm(W) x 4 cm(L) into the joint (D) in size and is a full thickness wound. Triple Washburn collagen comes in 1 gram packets so 10 packets were ordered. Given the size of the wound, with light to moderate exudate I chose to order a 10 day supply. The patient will be provided instructions for proper application of the collagen wound kit. The patient will be asked to apply the collagen powder daily and then cover it with sterile dressings dispensed. Collagen was selected as I expect the collagen to attract monocytes and fibroblasts, act as a sacrificial substrate for MMPs, and ultimately proved a matrix for tissue and vessel growth. The collagen will act as a primary dressing in this scenario. It is medically necessary for proper healing of these wounds to improve bioavailability and contact with each wound surface, this is also to help prevent infection of wounds and promote healing ultimately leading to a better healing outcome and limit the risk of infection. I attest to the content of the Intraoperative Record and any orders documented therein. Any exceptions are noted below.
--- NOTE | 2024-06-07 09:39 | Fluoroscopy Report ---
FL cervical 2-3V CLINICAL HISTORY: C5-C7 ACDF COMPARISON STUDY: None FLUOROSCOPY TIME: 13 seconds FLUOROSCOPY IMAGES: 3 EXPOSURE DOSE: 0.87 mGy FINDINGS: Anterior plate and screw fusion hardware is noted at what appears to be C5-C7 levels with d iscectomy. Surgical drainage catheter and endotracheal tube noted in addition to two anterior surgica l bed and surgical sponges on the lateral view, not seen on the AP view. Note that the images were saha bmitted following completion of the surgery. IMPRESSION: Fluoroscopic assistance as above. ACT 112: Negative or not required by law. Electronically signed by: Yann Alvarez M.D. 06/07/2024 9:38 AM
--- NOTE | 2024-06-07 10:22 | Anesthesiology Progress Note ---
Date of Service June 07, 2024 Anesthesia Post Procedure Vital Signs Vital Signs: Temp Pulse Resp BP Pulse Ox O2 Del Method O2 Flow Rate 06/07/24 10:20 67 22 131/84 94 Room Air 06/07/24 10:09 97.9 F 70 17 131/87 94 Room Air 06/07/24 10:00 72 21 129/74 94 Room Air 06/07/24 09:50 78 19 131/83 94 Room Air 06/07/24 09:40 77 18 134/81 99 Oxymask 4 06/07/24 09:30 83 12 134/80 100 Oxymask 15 06/07/24 09:23 97.9 F 87 16 145/87 H 100 Oxymask 15 06/07/24 06:25 98.2 F 61 20 135/84 98 Room Air Pain Intensity Lower Neck: Pain Intensity: 3 Neck: Pain Intensity: 3 Transfer of Care Handoff Completed per policy Notes Mental Status: alert / awake / arousable and participated in evaluation Patient Amnestic to Procedure: Yes Nausea / Vomiting: adequately controlled Pain: adequately controlled Airway Patency, RR, SpO2: stable & adequate BP & HR: stable & adequate Hydration State: stable & adequate Anesthetic Complications: no major complications apparent and Pt Satisfied with anesthetic care
[2024-06-07] MEDS ORDERED: DO NOT ADMINISTER PNEUMOCOCCAL VACCINE PRN (10:49)
[2024-06-07] MEDS ORDERED: HYDROmorphone INJ 0.5 MG/0.5 ML SYR IV PRN (10:49)
[2024-06-07] MEDS ORDERED: diphenhydrAMINE Capsule 25 MG CAP PO PRN (10:49)
[2024-06-07] MEDS ORDERED: dexAMETHasone 8 MG in SYRINGE 0 ML IV PRN (10:49)
[2024-06-07] MEDS ORDERED: ONDANSETRON 4 MG OD TAB PO PRN (10:49)
[2024-06-07] MEDS ORDERED: MAGNESIUM HYDROXIDE SUSP 30 ML UDC PO PRN (10:49)
[2024-06-07] MEDS ORDERED: ALUMINUM/MAGNESIUM SUSP 30 ML UDC PO PRN (10:49)
[2024-06-07] MEDS ORDERED: NALOXONE HCL 0.4 MG/1 ML VIAL/CARP IV PRN (10:49)
[2024-06-07] MEDS ORDERED: hydrOXYzine HCl 25 MG TAB PO PRN (10:49)
[2024-06-07] MEDS ORDERED: RACEPINEPHRINE 2.25% NEBU SOLN 0.5 ML VIAL INH PRN (10:49)
[2024-06-07] MEDS ORDERED: SOD PHOSPHATE/SOD BIPHOSPHATE ENEMA 132 ML BTL PR PRN (10:49)
[2024-06-07] MEDS ORDERED: bisacodyL 10 MG SUPP PR PRN (10:49)
[2024-06-07] MEDS ORDERED: DO NOT ADMINISTER FLU VACCINE PRN (10:49)
[2024-06-07] MEDS ORDERED: LORazepam 0.5 MG in SYRINGE 0.25 ML IV PRN (10:49)
[2024-06-07] MEDS ORDERED: ACETAMINOPHEN 1,000 MG/100 ML VIAL IV PRN (10:49)
[2024-06-07] MEDS ORDERED: METOCLOPRAMIDE HCL INJ 5 MG/ML 2 ML VIAL IV PRN (10:49)
[2024-06-07] MEDS ORDERED: HYDROmorphone INJ 1 MG/ML SYRINGE IV PRN (10:49)
[2024-06-07] MEDS ORDERED: PROMETHAZINE HCL 12.5 MG in SODIUM CHLORIDE 0.9% 50 ML IV PRN (10:49)
[2024-06-07] MEDS ORDERED: LORazepam 0.5 MG TAB PO PRN (10:49)
[2024-06-07] MEDS ORDERED: traMADol HCL 50 MG TABLET PO PRN (10:49)
[2024-06-07] MEDS ORDERED: FAMOTIDINE 20 MG TAB PO PRN (10:49)
[2024-06-07] MEDS: LACTATED RINGER'S 1,000 ML IV SCH (11:06)
[2024-06-07] MEDS: oxyCODONE HCL IR 5 MG TAB (IMMEDIATE RELEASE) PO PRN (15:46)
[2024-06-07] MEDS: DOCUSATE SODIUM/SENNA 50/8.6MG TAB PO SCH (19:54)
[2024-06-08] MEDS: POLYETHYLENE (MIRALAX) 17 GM PACK PO SCH (05:52)
[2024-06-08] MEDS: dexAMETHasone 6 MG in SYRINGE 0 ML IV SCH (08:11)
[2024-06-08] MEDS: ATORVASTATIN 20 MG TAB PO SCH (08:11)
[2024-06-08] MEDS: CHOLECALCIFEROL 25 MCG (1000 UNITS) TAB PO SCH (08:11)
[2024-06-08] MEDS: ACETAMINOPHEN 500 MG TAB PO PRN (08:20)
--- NOTE | 2024-06-08 09:36 | Discharge Summary ---
Date of Service June 08, 2024 Admission HPI Per Admitting Provider This is a 41-year-old female that presents with chronic assisted neck and arm pain a failed course of nonoperative care she is here for surgical invention. Principal Diagnosis Cervical spinal stenosis with radiculopathy Discharge Data Allergies Allergy/AdvReac Type Severity Reaction Status Date / Time No Known Allergies Allergy Verified 06/07/24 06:23 Procedures Performed Operation Date: 06/07/24 07:45 Actual Procedures p C5-C7 Anterior Cervical Discectomy and Fusion, Spinal Cord Monitoring(Not Applicable) - Adam Hobson DO Ordered Studies 06/07/24 07:00 FL cervical 2-3V Routine Hospital Course (1) Herniation of cervical intervertebral disc with radiculopathy: Patient 1 anterior cervical discectomy and fusion tolerated as well as taken to orthopedic for postoperative. Post ablation progressed appropriately. Marked improvement of her arm symptoms. Swallowing well. No hoarseness. Extra strength testing. RENETTA drain decreasing appropriately. Simply discharged home. Discharge orders instructions from the chart for further review. Total Time Total Time Spent Total Time Spent (In Minutes): 20 minutes Discharge Plan Discharge Items Patient Disposition: Home - Self-Care Reason For Visit: Herniation Cervical Intervetebral Disc Radiculopat Discharge Diagnosis: Cervical spinal stenosis with radiculopathy Activity: As commented below Non-emergency contact: Primary Care Provider Call non-emergency contact if: you have any medication questions Follow-up/Referrals: Vivian Orosco PA-C [Primary Care Provider] - Diet: Regular Addtl Attending Provider Instructions: ACTIVITY RECOMMENDATIONS: SELF CARE INSTRUCTIONS AFTER CERVICAL FUSIONS 1. No smoking. Smoking drastically decreases the chance of a solid fusion. 2. No bending, lifting more than 5 pounds, or twisting (roll like a log when turning in bed). 3. You may shower 3 days after surgery. Thoroughly dry wound. Do not soak in the tub. 4. Cervical collar: Must be worn at all times including sleeping. You may remove the brace only to bath, eat and if you are sitting in a recliner. 5. Please walk as much as you can for exercise. Gradually increase the distance that you walk as your endurance increases. SPECIAL CARE INSTRUCTIONS: VERY IMPORTANT TO READ AND REVIEW A. Do not take any anti-inflammatory medications (i.e. Indocin, Advil, Aspirin, Naprosyn, Aleve, Motrin, etc.) as these may inhibit the chance of a solid fusion. Tylenol is okay to take. B. Your surgical incision has been closed with a cosmetic suture under the skin that will dissolve in about 6 weeks. In 14 days, you can use a pair of cl cas scissors and cut the suture that is left outside of the skin at the ends of your incision. C. Complications are uncommon, but please contact us if you have any signs or symptoms of: 1. wound infection (fever higher than 102.5 degrees F, redness, separation of wound, drainage, or increasing pain from the incision) 2. blood clots in legs (pain, swelling, redness and warmth in legs) 3. urinary tract infection (fever higher than 102.5 degrees, burning upon urination or increased frequency of urination) 4. nerve problems (inability to walk on your toes or heels, numbness, loss of bowel or bladder control) 5. any other symptoms that concern you. D. Please call the office at if you have any concerns or questions about your operation or recovery. MANAGING PAIN AFTER SPINAL SURGERY 1. Narcotic medication is intended for short-term use and will be provided for surgical pain. Surgical pain usually lasts for a period of 4-6 weeks. Narcotic medication includes Percocet, Vicodin, Darvocet, Tylenol #3 or Lortab. 2. Longer-term pain is more appropriately treated with non-narcotic medication such as Tylenol ES. 3. Muscle spasm is not appropriately treated with narcotics. Muscle relaxers such as Soma, Flexeril or Skelaxin can be used along with Tylenol ES. 4. Remember that we all live with some "aches and pains". This is not unusual or uncommon after an injury or as we get older. 5. We will provide appropriate medication within the normal guidelines of their prescribed use. We will also be very cautious and aware of potential abuse and extended duration of patients' medication needs. 6. Please allow 2-3 days to process refills. Prescriptions will not be mailed but must be picked up at the office. FOLLOW UP VISIT: Keep your scheduled follow-up appointment. Any questions, please call the office at . Pending Studies at Discharge: No Stand-Alone Forms: My [facility], Smoking Cessation Medications and DC Order Prescriptions: New tramadol 50 mg tablet 50 mg PO Q6H PRN (Reason: pain, moderate) Qty: 30 0RF oxycodone 5 mg tablet 5 mg PO Q6H PRN (Reason: pain) Qty: 30 0RF Continued atorvastatin 20 mg Tablet 20 mg PO QAM cholecalciferol (vitamin D3) [Vitamin D3] 25 mcg (1,000 unit) Capsule 25 mcg PO QAM Discharge Orders: Discharge Order (Routine); Ordered 06/08/24 Ordered By: Adam Hobson Admission Data Admit Date/Time: 06/07/24 09:13 Attending Provider: Adam Hobson Admit Provider: Adam Hobson Primary Care Provider: Vivian Orosco
== END 2024-06-08 10:48 | disposition home or self-care (01) ==
LOC: 3E 05:57 → ASU 05:57